=== PATIENT | male | born 1940 | race Caucasian/White ===

== ENCOUNTER → 2016-06-19 | Outpatient (CLI) | payer MEDICARE, BC ==
[~2016-06-19] MED LIST: AMOXICILLIN 8751 TAB PO; ASPIRIN 81M81 MG/TA2 PO; CALCIUM 600600 MG PO; CORDARONE200 MG/TAB PO; LEVOXYL0.075 MG PO; LUNESTA 1MG TAB1 MG PO; LUPRON DEPOT30 M1; PRAVACHOL 40MG40 MG PO; REQUIP 1MG T1 MG/TAB PO; TOPROL XL 25MG25 MG PO; VITAMIN D1000 IU PO; ZOCOR 40MG40 MG PO
== END ==
LOC: COL.VAS 13:30
DX: I86.8 Varicose veins of other specified sites (principal); M79.604 Pain in right leg; M79.89 Other specified soft tissue disorders

== ENCOUNTER 2016-10-19 09:53 | Emergency (ER) | payer MEDICARE, BC ==
[~2016-10-19] VITALS: Ht 172.7 cm; Wt 79.5 kg
[~2016-10-19 09:53] MED LIST changes: -AMOXICILLIN 8751 TAB PO; -ASPIRIN 81M81 MG/TA2 PO; -CORDARONE200 MG/TAB PO; -PRAVACHOL 40MG40 MG PO; -TOPROL XL 25MG25 MG PO
[2016-10-19 09:59] VITALS: TEMP 98.7
[2016-10-19 10:35] LABS: BASO % 0.3 % (0.0-2.0); EOS % 0.5 % (0-4.0); GRAN # 6.1 (1.4-6.5); HEMATOCRIT 39.1 % (42.0-52.0); LYMPH # 0.6 (1.2-3.4); LYMPH % 7.9 % (20.0-51.0); MEAN CELL VOLUME 97 fl (80.0-100.0); MEAN CORPUSCULAR HEMOGLOBIN 32 pg (27.0-31.0); MEAN CORPUSCULAR HGB CONC 33 g/dl (33.0-37.0); MEAN PLATELET VOLUME 9.6 fl (7.4-10.4); MONO # 0.6 (0.1-0.6); MONO % 7.9 % (1.7-9.3); PLATELET COUNT 142 K/mm3 (130-400); RED BLOOD COUNT 4.03 M/mm3 (4.20-5.60); REDCELL DISTRIBUTION WIDTH-CV 12.1 % (11.5-14.5); WHITE BLOOD COUNT 7.3 K/mm3 (4.8-10.8)
[2016-10-19 10:36] LABS: INR 1.2 (0.8-3.0); PROTHROMBIN TIME 13.3 SECONDS (9.7-12.8)
[2016-10-19] MEDS ORDERED: CORDARONE200 MG/TAB PO (10:37)
[2016-10-19] MEDS ORDERED: TOPROL XL 25MG25 MG PO (10:37)
[2016-10-19] MEDS ORDERED: PRAVACHOL 40MG40 MG PO (10:38)
[2016-10-19] MEDS ORDERED: ASPIRIN 81M81 MG/TA2 PO (10:45)
[2016-10-19 10:48] LABS: ADJUSTED CALCIUM 8.7 mg/dL (8.4-10.2); ALANINE AMINOTRANSFERASE 35 U/L (21-72); ALKALINE PHOSPHATASE 38 U/L (50-136); ANION GAP 9 mmol/L (7-16); BILIRUBIN,TOTAL 1.2 mg/dL (0.0-1.0); BLOOD UREA NITROGEN 16 mg/dL (9-20); CALCIUM 8.7 mg/dL (8.4-10.2); CARBON DIOXIDE 28 mmol/L (22-30); CHLORIDE 102 mmol/L (98-107); CREATINE KINASE 285 U/L (55-170); CREATININE, serum 1.05 mg/dL (0.66-1.25); GLUCOSE 102 mg/dL (74-106); POTASSIUM 4.5 mmol/L (3.4-5.0); SODIUM 139 mmol/L (137-145); TOTAL PROTEIN 6.6 gm/dL (6.4-8.2)
[2016-10-19 10:59] LABS: B-TYPE NATRIURETIC PEPTIDE 679 pg/mL (0-125)
[2016-10-19 11:00] LABS: TROPONIN-I < 0.012 ng/mL (0.000-0.034)
[2016-10-19] MEDS ORDERED: AMOXICILLIN 8751 TAB PO (12:35)
[2016-10-19 13:20] VITALS: BP 116/60; PULSE 60
== END 2016-10-19 13:20 | disposition home or self-care (01) ==
LOC: COL.ER 09:53
PROVIDERS: Emergency Medicine
DX: R55 Syncope and collapse (principal); E78.5 Hyperlipidemia, unspecified; I48.91 Unspecified atrial fibrillation; J20.9 Acute bronchitis, unspecified
CPT/HCPCS: J7030

== ENCOUNTER 2018-01-12 07:59 | Emergency (ER) | payer MEDICARE, BC ==
[~2018-01-12] VITALS: Ht 172.7 cm; Wt 81.8 kg
[~2018-01-12 07:59] MED LIST changes: +AMOXICILLIN 8751 TAB PO; +ASPIRIN 81M81 MG/TA2 PO; +CORDARONE200 MG/TAB PO; +PRAVACHOL 40MG40 MG PO; +TOPROL XL 25MG25 MG PO
[2018-01-12 08:03] VITALS: TEMP 97.8
[2018-01-12] MEDS ORDERED: CALCIUM CARBON650 M2 (08:22)
[2018-01-12 08:58] LABS: BASO % 0.4 % (0.0-2.0); EOS # 0.1 (0.0-0.7); EOS % 1.6 % (0-4.0); GRAN # 3.7 (1.4-6.5); GRAN % 72.9 % (42.2-75.2); HEMATOCRIT 42.4 % (42.0-52.0); HEMOGLOBIN 14.3 g/dl (13.5-18.0); LYMPH # 0.9 (1.2-3.4); LYMPH % 17.9 % (20.0-51.0); MEAN CELL VOLUME 96 fl (80.0-100.0); MEAN CORPUSCULAR HEMOGLOBIN 32 pg (27.0-31.0); MEAN CORPUSCULAR HGB CONC 34 g/dl (33.0-37.0); MEAN PLATELET VOLUME 9.4 fl (7.4-10.4); MONO # 0.3 (0.1-0.6); MONO % 6.8 % (1.7-9.3); PLATELET COUNT 173 K/mm3 (130-400); RED BLOOD COUNT 4.44 M/mm3 (4.20-5.60); REDCELL DISTRIBUTION WIDTH-CV 12.1 % (11.5-14.5)
[2018-01-12 09:05] LABS: INR 1.1 (0.8-3.0)
[2018-01-12 09:08] LABS: ALANINE AMINOTRANSFERASE 31 U/L (21-72); ALBUMIN 3.8 gm/dL (3.5-5.0); ALKALINE PHOSPHATASE 31 U/L (50-136); ANION GAP 10 mmol/L (7-16); AST,SGOT 23 U/L (15-37); BILIRUBIN,TOTAL 0.9 mg/dL (0.0-1.0); BLOOD UREA NITROGEN 17 mg/dL (9-20); CALCIUM 8.4 mg/dL (8.4-10.2); CARBON DIOXIDE 25 mmol/L (22-30); CHLORIDE 99 mmol/L (98-107); CREATININE, serum 0.99 mg/dL (0.66-1.25); GLUCOSE 102 mg/dL (74-106); POTASSIUM 4.5 mmol/L (3.4-5.0); SODIUM 134 mmol/L (137-145); TOTAL PROTEIN 6.4 gm/dL (6.4-8.2)
[2018-01-12 09:24] LABS: TROPONIN-I < 0.012 ng/mL (0.000-0.034)
[2018-01-12] MEDS ORDERED: CEPHALEXIN500 M1 PO (12:19)
[2018-01-12 12:26] VITALS: BP 114/56; PULSE 56
== END 2018-01-12 12:36 | disposition home or self-care (01) ==
LOC: COL.ER 07:59
PROVIDERS: Emergency Medicine
DX: S01.21XA Laceration without foreign body of nose, initial encounter (principal); S01.81XA Laceration without foreign body of other part of head, initial encounter; R55 Syncope and collapse; I10 Essential (primary) hypertension; E78.5 Hyperlipidemia, unspecified; E03.9 Hypothyroidism, unspecified; Z98.890 Other specified postprocedural states; W19.XXXA Unspecified fall, initial encounter; Y92.002 Bathroom of unspecified non-institutional (private) residence as the place of occurrence of the external cause
CPT/HCPCS: J7030

== ENCOUNTER 2018-01-17 10:23 | Emergency (ER) | payer MEDICARE, BC ==
[~2018-01-17 10:23] MED LIST changes: +CALCIUM CARBON650 M2; +CEPHALEXIN500 M1 PO
[2018-01-17 10:41] VITALS: BP 128/63; PULSE 62; TEMP 98.5
== END 2018-01-17 10:51 | disposition home or self-care (01) ==
LOC: COL.ER 10:23
DX: S01.81XD Laceration without foreign body of other part of head, subsequent encounter (principal); S01.21XD Laceration without foreign body of nose, subsequent encounter; Z79.82 Long term (current) use of aspirin

== ENCOUNTER 2018-02-17 22:39 | Emergency (ER) | payer MEDICARE, BC ==
[2018-02-17 22:59] LABS: BASO % 0.6 % (0.0-2.0); EOS # 0.1 (0.0-0.7); EOS % 1.5 % (0-4.0); GRAN # 4.3 (1.4-6.5); GRAN % 64.8 % (42.2-75.2); HEMOGLOBIN 14.2 g/dl (13.5-18.0); LYMPH # 1.5 (1.2-3.4); LYMPH % 22.5 % (20.0-51.0); MEAN CELL VOLUME 94 fl (80.0-100.0); MEAN CORPUSCULAR HEMOGLOBIN 33 pg (27.0-31.0); MEAN CORPUSCULAR HGB CONC 35 g/dl (33.0-37.0); MEAN PLATELET VOLUME 9.7 fl (7.4-10.4); MONO # 0.7 (0.1-0.6); PLATELET COUNT 163 K/mm3 (130-400); RED BLOOD COUNT 4.37 M/mm3 (4.20-5.60); REDCELL DISTRIBUTION WIDTH-CV 11.8 % (11.5-14.5)
[2018-02-17 23:09] LABS: ALANINE AMINOTRANSFERASE 29 U/L (21-72); ALBUMIN 4.2 gm/dL (3.5-5.0); ALKALINE PHOSPHATASE 33 U/L (50-136); ANION GAP 12 mmol/L (7-16); AST,SGOT 23 U/L (15-37); BILIRUBIN,TOTAL 0.6 mg/dL (0.0-1.0); BLOOD UREA NITROGEN 16 mg/dL (9-20); CALCIUM 8.8 mg/dL (8.4-10.2); CARBON DIOXIDE 24 mmol/L (22-30); CHLORIDE 97 mmol/L (98-107); CREATININE, serum 0.92 mg/dL (0.66-1.25); GLUCOSE 92 mg/dL (74-106); MAGNESIUM 2.2 mg/dL (1.6-2.3); POTASSIUM 3.9 mmol/L (3.4-5.0); SODIUM 133 mmol/L (137-145)
[2018-02-17 23:22] LABS: TROPONIN-I < 0.012 ng/mL (0.000-0.034)
[2018-02-17 23:53] LABS: COLLECTION METHOD CLEAN CATCH
[2018-02-17 23:58] LABS: MUCOUS Present /lpf; PH 6 (5-8); SQUAMOUS EPITHELIAL 0-2 /hpf; URINE APPEARANCE Clear; URINE BACTERIA None Seen /hpf; URINE BILIRUBIN Negative (NEGATIVE); URINE BLOOD 1+ (NEGATIVE); URINE COLOR Yellow; URINE GLUCOSE Negative (NEGATIVE); URINE KETONE Negative (NEGATIVE); URINE LEUKOCYTE ESTERASE Negative (NEGATIVE); URINE NITRATE Negative (NEGATIVE); URINE PROTEIN(semi-quant) Negative (NEGATIVE); URINE RBC 0-2 /hpf; URINE UROBILINOGEN Negative (NEGATIVE)
[2018-02-18] MEDS ORDERED: CASODEX 50MG TA50 MG PO (01:05)
[2018-02-18] MEDS ORDERED: FLOMAX 0.40.4 MG/CAP PO (01:07)
[2018-02-18] MEDS ORDERED: SYNTHROID0.075 MG/T PO (01:07)
[2018-02-18 01:10] VITALS: BP 119/78; PULSE 57
== END 2018-02-18 01:10 | disposition short-term general hospital (02) ==
LOC: COL.ER 22:39
PROVIDERS: Emergency Medicine
DX: R55 Syncope and collapse (principal); R00.1 Bradycardia, unspecified; I48.91 Unspecified atrial fibrillation; E78.5 Hyperlipidemia, unspecified; Z79.82 Long term (current) use of aspirin; Z85.46 Personal history of malignant neoplasm of prostate; Z90.79 Acquired absence of other genital organ(s)
CPT/HCPCS: J7030

== ENCOUNTER → 2022-04-06 | Outpatient (CLI) | payer MEDICARE, BC ==
[~2022-04-06] MED LIST changes: +CASODEX 50MG TA50 MG PO; +FLOMAX 0.40.4 MG/CAP PO; +SYNTHROID0.075 MG/T PO
== END ==
LOC: COL.RAD 10:09
DX: M51.37 Other intervertebral disc degeneration, lumbosacral region (principal); M47.817 Spondylosis without myelopathy or radiculopathy, lumbosacral region; M48.07 Spinal stenosis, lumbosacral region